=== PATIENT | female | born 1960 | race American Indian/Alaskan Native ===

== ENCOUNTER 2016-10-01 08:24 | Outpatient (CLI) | payer BC ==
[2016-10-01] MEDS ORDERED: NACL ONE (09:40)
--- NOTE | 2016-10-01 10:23 | Cat Scan Report ---
CT SCAN OF THE ABDOMEN WITH CONTRAST: HISTORY: Right upper quadrant abdominal pain. TECHNIQUE: Helical CT in 1.25mm intervals following IV contrast. Sagittal and coronal reconstructions. FINDINGS: The liver is normal in size and is without focal defect. No gallstones or biliary dilatation are noted. The spleen and pancreas demonstrate a normal size and attenuation with no evidence of abnormal mass. The kidneys are normal in size and position with no evidence of hydronephrosis or mass. 2 renal cysts measure up to 2 cm. The adrenal glands are normal. There is no intestinal obstruction or ascites. The appendix is not included. The abdominal aorta is normal. No evidence for ascites, free air, acute inflammation or adenopathy. The lung bases are clear. Normal heart size. No acute bony findings. IMPRESSION: Unremarkable CT abdomen with contrast. No explanation for right upper quadrant pain.
== END 2016-10-01 08:25 | disposition home or self-care (01) ==
LOC: CT 08:24
PROVIDERS: ATTEND Family Medicine
DX: N28.1 Cyst of kidney, acquired (principal)
CPT/HCPCS: 74160; Q9967

== ENCOUNTER 2016-12-30 06:54 | Outpatient (CLI) | payer BC ==
[2016-12-30 09:32] VITALS: BP 128/71
[2016-12-30] MEDS ORDERED: LEXISCAN IV ONE (09:53)
--- NOTE | 2016-12-31 08:32 | Treadmill Report ---
NUCLEAR STUDY REASON FOR STUDY: Chest pain and shortness of breath. READING PHYSICIAN: Fernando Velasquez MD. IMAGING PROTOCOL: The patient received 10 mCi of Technetium 99m Tetrofosmin for resting image and 28 mCi of Technetium 99m Tetrofosmin for stress imaging. The imaging for the whole procedure was completed 30-90 minutes following the initial injection of Technetium 99m tetrofosmin. The SPECT imaging in the 180 degree arc was performed in the right anterior oblique projection. Computerized reconstruction of the images was performed for analysis. IMAGING RESULTS: Normal cavity size from stress to rest. Normal distribution of radionuclide in the anterior, inferior, septal, and apical regions. Gated SPECT, EF greater than 65% with no wall motion abnormalities. The patient infused with Lexiscan with no EKG changes. SUMMARY: 1. Negative Lexiscan EKG. 2. Normal rest and stress myocardial perfusion scan. No significant stress ischemia. No wall motion abnormality. Gated SPECT, EF greater than 65%. [facility]# [id number] MALINI/LINDA
== END 2016-12-30 06:55 | disposition home or self-care (01) ==
LOC: ECHO 06:54
PROVIDERS: ATTEND Internal Medicine
DX: I10 Essential (primary) hypertension (principal); R07.89 Other chest pain; R42 Dizziness and giddiness; R60.0 Localized edema
CPT/HCPCS: 78452; 93017; 93306; 93880; A9502

== ENCOUNTER 2018-08-14 11:53 | Emergency (ER) | payer OTHER, BC ==
[2018-08-14] MEDS ORDERED: IBUPROFEN PO ONE (12:14)
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
[2018-08-16 12:02] VITALS: BP 146/71
== END 2018-08-14 15:05 | disposition home or self-care (01) ==
LOC: ED 11:53
DX: T14.8XXA Other injury of unspecified body region, initial encounter (principal); M25.512 Pain in left shoulder; V49.49XA Driver injured in collision with other motor vehicles in traffic accident, initial encounter; Y93.89 Activity, other specified; Y92.488 Other paved roadways as the place of occurrence of the external cause; Y99.8 Other external cause status; M54.2 Cervicalgia
CPT/HCPCS: 72040

== ENCOUNTER 2019-02-26 08:09 | Outpatient (CLI) | payer BC ==
[2019-02-26 08:26] LABS: Hematocrit 40.4 % (30.3-42.9); Hemoglobin 13.6 gm/dl (10.1-14.3); Mean Corpuscular HGB Conc 34 % (30-34); Mean Corpuscular Volume 94 fl (79-97); Platelet Count 354 K/mm3 (140-440); Red Blood Count 4.31 M/mm3 (3.65-5.03); Red Cell Distribution Width 14.7 % (13.2-15.2)
[2019-02-26 08:45] LABS: Alanine Aminotransferase 30 units/L (7-56); Albumin 4.1 g/dL (3.9-5); BUN/Creatinine Ratio 17; Blood Urea Nitrogen 12 mg/dL (7-17); Calcium 9.5 mg/dL (8.4-10.2); Chol/HDL Ratio 5.27 %; HDL Cholesterol 43 mg/dL (40-59); Hemolysis Index 2; LDL Cholesterol,Direct 188 mg/dL (50-130)
== END 2019-02-26 08:10 | disposition home or self-care (01) ==
LOC: LAB 08:09
PROVIDERS: ATTEND Family Medicine
DX: I10 Essential (primary) hypertension (principal); R73.03 Prediabetes; Z79.899 Other long term (current) drug therapy
CPT/HCPCS: 36415; 80053; 80061; 83036; 84443; 85027

== ENCOUNTER 2019-03-05 09:31 | Outpatient (CLI) | payer BC ==
--- NOTE | 2019-03-08 10:49 | Mammography Report ---
BONE DEXA. History: SCRENING FOR OSTEO Procedure: 2 site bone densitometry performed on a Hologic scanner. Comparison: None Findings: The BMD of the lumbar spine L1-L4 is 0.914 gm/cm2 with a T-score of -1.2 and a Z-score of -0.7 . The bone mineral density (BMD) of the left femoral neck is 0.775 gm/cm2 with a T-score of -0.7 and a Z-score of 0.3. The BMD of the total left hip is 0.974 gm/cm2 with a T-score of +0.3 and a Z-score of 0.3. Impression: WHO Classification: Osteopenia based on lumbar spine measurements. WHO classification: Osteopenia based on left femoral neck measurements. The FRAX 10 year fracture probability for a major osteoporotic fracture is 2.7%. The FRAX 10 year fracture probability for hip fracture is 0.1%. Pharmacological treatment, if not already prescribed should be started. A followup bone density test is recommended in one year to monitor response to therapy. Note:FRAX version 3.01. Fracture probability calculated for an untreated patient. Fracture probabilit y may be lower if the patient has received treatment. RECOMMENDATION: Clinical correlation and routine screening. Definitions: BMD = Bone Mineral Density T score = BMD related to mean peak bone mass of young adult (Laron expressed an standard deviation) Z score = Age-matched BMD expressed in SD World health organization (WHO) diagnostic criteria: Normal: T score greater than -1 SD. Osteopenia: T score between 1- SD and -2.4 SD. Osteoporosis: T score -2.5 SD or below Note: BMD is not the only risk factor for fracture; also consider factors such as the patient's age, risk of falling, previous osteoporotic fracture, family history of osteoporotic fractures, smoking st atus and low body weight. All treatment decisions require clinical judgment and consideration of individual patient factors inc luding patient preferences, comorbidities, previous drug use and risk factors not captured in the FRA X model (e.g. Frailty, falls, vitamin D deficiency, increased bone turnover, interval significant dec line in BMD). A more detailed DEXA Bone Densitometry report is available upon request. Signer Name: Tex Bustillos MD Signed: 03/08/2019 10:45 AM Workstation Name: [id number]
== END 2019-03-05 09:32 | disposition home or self-care (01) ==
LOC: MAMMO 09:31
PROVIDERS: ATTEND Family Medicine
DX: Z13.820 Encounter for screening for osteoporosis (principal); M85.88 Other specified disorders of bone density and structure, other site; I10 Essential (primary) hypertension
CPT/HCPCS: 77080

== ENCOUNTER 2019-06-16 08:00 | Outpatient (CLI) | payer BC ==
[2019-06-16 08:42] LABS: Alanine Aminotransferase 18 units/L (7-56); Albumin 4.4 g/dL (3.9-5); BUN/Creatinine Ratio 16; Blood Urea Nitrogen 11 mg/dL (7-17); Calcium 9.8 mg/dL (8.4-10.2); Chol/HDL Ratio 3.87 %; HDL Cholesterol 41 mg/dL (40-59); Hemolysis Index 1; LDL Cholesterol,Direct 109 mg/dL (50-130)
[2019-06-19 15:31] LABS: Vitamin D, 25-OH, D2 <4 ng/mL
== END 2019-06-16 08:01 | disposition home or self-care (01) ==
LOC: LAB 08:00
PROVIDERS: ATTEND Family Medicine
DX: R73.02 Impaired glucose tolerance (oral) (principal); E55.9 Vitamin D deficiency, unspecified; E78.00 Pure hypercholesterolemia, unspecified; Z79.899 Other long term (current) drug therapy
CPT/HCPCS: 36415; 80053; 80061; 82306; 83036

== ENCOUNTER 2019-07-01 07:53 | Outpatient (CLI) | payer BC ==
--- NOTE | 2019-07-01 08:40 | XRay Report ---
LEFT FOOT 3 VIEWS INDICATION / CLINICAL INFORMATION: M79.672 LEFT FOOT PAIN. COMPARISON: None available. FINDINGS: no fracture, dislocation or soft tissue swelling is seen within the left foot. nonpostinflammatory ca lcaneal enthesophytes are seen at the attachment of the achilles tendon and plantar tendon aponeurosi s. mild degenerative arthrosis is seen within the first mtp joint Signer Name: Nirmal Farrell MD Signed: 07/01/2019 8:35 AM Workstation Name: [id number]
== END 2019-07-01 07:54 | disposition home or self-care (01) ==
LOC: XRAY 07:53
PROVIDERS: ATTEND Family Medicine
DX: M77.32 Calcaneal spur, left foot (principal); M19.072 Primary osteoarthritis, left ankle and foot

== ENCOUNTER 2020-05-24 10:31 | Outpatient (CLI) | payer BC ==
[2020-05-24 11:29] LABS: Blood Urea Nitrogen 11 mg/dL (7-17)
--- NOTE | 2020-05-24 15:53 | Cat Scan Report ---
CT ABDOMEN AND PELVIS WITHOUT CONTRAST INDICATION / CLINICAL INFORMATION: SEVERE LOWER ABDOMINAL PAIN. TECHNIQUE: Axial CT images were obtained through the abdomen and pelvis without IV contrast. All CT scans at [facility] location are performed using CT dose reduction for ALARA by means of automated exposure control. COMPARISON: None available. FINDINGS: LOWER CHEST: No significant abnormality. LIVER: No significant abnormality. GALLBLADDER: No significant abnormality. BILE DUCTS: No significant abnormality. PANCREAS: No significant abnormality. SPLEEN: No significant abnormality. ADRENALS: No significant abnormality. RIGHT KIDNEY and URETER: Multiple small cysts identified within the mid and lower portion of the righ t kidney.. LEFT KIDNEY and URETER: No significant abnormality. STOMACH and SMALL BOWEL: No significant abnormality. COLON: No significant abnormality. Sigmoid diverticulosis but no diverticulitis. APPENDIX: Not well identified.. PERITONEUM: No free fluid. No free air. No fluid collection. LYMPH NODES: No significant adenopathy. AORTA and ARTERIES: No significant abnormality. IVC and VEINS: No significant abnormality. URINARY BLADDER: No significant abnormality. REPRODUCTIVE ORGANS: No significant abnormality. ADDITIONAL FINDINGS: None. SKELETAL SYSTEM: No significant abnormality. IMPRESSION: No acute intra-abdominal abnormality is identified. Minimally complex cyst noted within the right kid yahaira. Sigmoid diverticulosis but no diverticulitis. Signer Name: Mukul Grossman MD Signed: 05/24/2020 3:48 PM Workstation Name: [id number]
== END 2020-05-24 10:32 | disposition home or self-care (01) ==
LOC: CT 10:31
PROVIDERS: ATTEND Internal Medicine
DX: N28.1 Cyst of kidney, acquired (principal); K57.90 Diverticulosis of intestine, part unspecified, without perforation or abscess without bleeding
CPT/HCPCS: 36415; 74150; 74176; 82565; 84520

== ENCOUNTER 2020-06-23 07:47 | Outpatient (CLI) | payer BC ==
[2020-06-23 08:15] LABS: Hematocrit 40.1 % (30.3-42.9); Hemoglobin 13.4 gm/dl (10.1-14.3); Mean Corpuscular HGB Conc 33 % (30-34); Mean Corpuscular Volume 94 fl (79-97); Platelet Count 370 K/mm3 (140-440); Red Blood Count 4.26 M/mm3 (3.65-5.03); Red Cell Distribution Width 14.4 % (13.2-15.2)
[2020-06-23 08:52] LABS: Alanine Aminotransferase 18 units/L (7-56); Albumin 4.2 g/dL (3.9-5); Blood Urea Nitrogen 15 mg/dL (7-17); Calcium 9.6 mg/dL (8.4-10.2); Chol/HDL Ratio 5.15 %; HDL Cholesterol 46 mg/dL (40-59); Hemolysis Index 3; LDL Cholesterol,Direct 199 mg/dL (50-130)
[2020-06-23 08:58] LABS: BUN/Creatinine Ratio 21
[2020-06-29 12:35] LABS: ANA Screen, IFA Negative (Negative)
== END 2020-06-23 07:48 | disposition home or self-care (01) ==
LOC: LAB 07:47
PROVIDERS: ATTEND Internal Medicine Pulmonary Disease
DX: E11.9 Type 2 diabetes mellitus without complications (principal); I10 Essential (primary) hypertension; M06.4 Inflammatory polyarthropathy
CPT/HCPCS: 36415; 80053; 80061; 83036; 84436; 84443; 84480; 85027; 86038; 86431

== ENCOUNTER 2020-09-21 06:38 | Outpatient (CLI) | payer BC ==
--- NOTE | 2020-09-21 09:41 | Magnetic Resonance Report ---
MRI RIGHT KNEE WITHOUT CONTRAST INDICATION / CLINICAL INFORMATION: MAIN. 60-year-old female with pain in the right hip in the right knee. TECHNIQUE: Multiplanar, multisequence MR images were obtained. No contrast used. COMPARISON: None available. FINDINGS: LIGAMENTS: ACL, PCL, MCL, and LCL complex demonstrate no significant abnormality. MENISCI: Degenerative appearance of the medial meniscus with near complete radial tear at the posteri or horn and peripheral extrusion of the body segment. Lateral meniscus is intact. No displaced fragme nt or a meniscal cyst. EXTENSOR MECHANISM/TENDONS: Mild insertional quadriceps tendinosis and mild proximal patellar tendino sis. ARTICULAR CARTILAGE: Severe medial tibiofemoral chondrosis with essentially complete loss of cartilag e. Moderate patellofemoral and lateral tibiofemoral chondrosis. JOINT SPACE: Small effusion with mild synovitis. No significant popliteal cyst. No intra-articular cindi dies. Small amount of fluid at the proximal tibiofibular articulation. BONES: Minimal subchondral edema/cystic change at the peripheral tibiofemoral articulation. No fractu re. No osseous lesion. Small proximal and distal patellar enthesophytes. SOFT TISSUES: No significant abnormality. ADDITIONAL FINDINGS: None. IMPRESSION: 1. Tricompartmental osteoarthrosis, greatest at the medial compartment. There is near complete medial meniscus radial tear at the posterior horn and peripheral extrusion of the body segment. 2. Mild patellar enthesopathy at the distal quadriceps and proximal patellar tendon attachments. Report dictated by: Javier Conley MD Report dictated on: 09/21/2020 8:28 AM I have reviewed the images, agree with this report, and edited this report as needed. Signer Name: Sheng Diez MD Signed: 09/21/2020 9:36 AM Workstation Name: [id number]
--- NOTE | 2020-09-21 09:44 | Magnetic Resonance Report ---
MRI RIGHT HIP WITHOUT CONTRAST INDICATION / CLINICAL INFORMATION: PAIN IN RIGHT HIP AND KNEE. 60-year-old female TECHNIQUE: Multiplanar, multisequence MR images were obtained. No contrast used. COMPARISON: CT abdomen and pelvis 05/24/2020 FINDINGS: HIP JOINT: Diffuse labral degeneration with some mild chondral-labral separation along the superior l abrum. Small effusion with mild synovitis. Moderate chondrosis. MUSCULOTENDINOUS: Mild reactive edema subjacent to the IT band at the level of the greater trochanter . SOFT TISSUES: No significant abnormality. BONES: Mild edema at the lateral femoral head and adjacent acetabular roof. No fracture. No osseous lesion. ADDITIONAL FINDINGS: Incidentally visualized soft tissues within the pelvis demonstrate no significan t abnormality. Sacroiliac joints demonstrate no significant abnormality. Lower lumbar spine demonstra casey no significant abnormality. Partially visualized 1.4 cm right anterior/proximal thigh lymph node, possibly reactive. IMPRESSION: 1. Moderate right hip degenerative change with associated diffuse labral degeneration with mild chond ral-labral separation along the superior labrum. 2. Small effusion with mild synovitis. 3. Mild edema subjacent to the proximal IT band at the level of the greater trochanter. Report dictated by: Javier Conley MD Report dictated on: 09/21/2020 8:20 AM I have reviewed the images, agree with this report, and edited this report as needed. Signer Name: Sheng Diez MD Signed: 09/21/2020 9:39 AM Workstation Name: [id number]
== END 2020-09-21 06:39 | disposition home or self-care (01) ==
LOC: MRI 06:38
PROVIDERS: ATTEND Orthopaedic Surgery
DX: S83.241A Other tear of medial meniscus, current injury, right knee, initial encounter (principal); M25.451 Effusion, right hip; M65.851 Other synovitis and tenosynovitis, right thigh; M16.11 Unilateral primary osteoarthritis, right hip; M79.89 Other specified soft tissue disorders; M76.891 Other specified enthesopathies of right lower limb, excluding foot; M17.11 Unilateral primary osteoarthritis, right knee; M25.461 Effusion, right knee; M65.861 Other synovitis and tenosynovitis, right lower leg; X58.XXXA Exposure to other specified factors, initial encounter; Y93.89 Activity, other specified; Y92.89 Other specified places as the place of occurrence of the external cause; Y99.8 Other external cause status
CPT/HCPCS: 73721

== ENCOUNTER 2020-11-15 10:09 | Outpatient (CLI) | payer BC ==
[2020-11-15] MEDS ORDERED: LIDOCAINE 2% INFILTRATI NR (12:00)
[2020-11-15] MEDS ORDERED: METHYLPREDNISOLONE ACETATE INFILTRATI NR (12:00)
--- NOTE | 2020-11-15 13:49 | Fluoroscopy Report ---
FLUOROSCOPY ARTHROCENTESIS LARGE JOINT RIGHT HISTORY: Right hip pain, right hip labral tear DESCRIPTION OF PROCEDURE: Informed consent was obtained. A timeout was performed. Sterile technique w as utilized. The right anterior hip region was prepped and draped in sterile fashion. Skin anesthesia was accomplished with 1% lidocaine. Using fluoroscopy guidance, a 22-gauge spinal needle was advance d into the right hip joint. Intra-articular placement was confirmed with a small amount of contrast i njection. A solution containing 2 cc of 2% lidocaine and 40 mg of Depo-Medrol was injected without in cident. The patient tolerated the procedure without difficulty. No complications. The patient reports right hip pain graded as 3 out of 10 prior to the procedure and 1 out of 10 after the procedure. IMPRESSION: Successful fluoroscopy guided right hip injection as described. Fluoroscopy time: 1.3 minutes Fluoroscopic images: 3 Signer Name: Werner Jerome Jr, MD Signed: 11/15/2020 1:44 PM Workstation Name: [id number]
== END 2020-11-15 10:10 | disposition home or self-care (01) ==
LOC: FLUORO 10:09
PROVIDERS: ATTEND Orthopaedic Surgery
DX: S73.191A Other sprain of right hip, initial encounter (principal); M16.11 Unilateral primary osteoarthritis, right hip; I10 Essential (primary) hypertension; F32.9 Major depressive disorder, single episode, unspecified; Z88.8 Allergy status to other drugs, medicaments and biological substances; Z79.899 Other long term (current) drug therapy; X58.XXXA Exposure to other specified factors, initial encounter; Y93.89 Activity, other specified; Y92.89 Other specified places as the place of occurrence of the external cause; Y99.8 Other external cause status
CPT/HCPCS: 20610; 77002; J1030; Q9965

== ENCOUNTER 2020-12-08 06:52 | Outpatient (CLI) | payer BC ==
[2020-12-08 08:23] LABS: Basophils # (Auto) 0.1 K/mm3 (0.0-0.1); Basophils % (Auto) 1.7 % (0.0-1.8); Eosinophils # (Auto) 0.1 K/mm3 (0.0-0.4); Eosinophils % (Auto) 1.6 % (0.0-4.3); Hemoglobin 13.7 gm/dl (10.1-14.3); Lymphocytes % (Auto) 35.8 % (13.4-35.0); Mean Corpuscular HGB Conc 34 % (30-34); Mean Corpuscular Volume 93 fl (79-97); Monocytes # (Auto) 0.6 K/mm3 (0.0-0.8); Monocytes % (Auto) 7.6 % (0.0-7.3); Red Cell Distribution Width 14.6 % (13.2-15.2)
[2020-12-08 08:34] LABS: Platelet Count 324 K/mm3 (140-440)
[2020-12-08 08:46] LABS: INR 0.98 (0.87-1.13)
[2020-12-08 08:47] LABS: Partial Thromboplastin Time 29.5 Sec. (24.2-36.6)
[2020-12-08 09:01] LABS: Alanine Aminotransferase 23 units/L (7-56); Albumin 4.4 g/dL (3.9-5); BUN/Creatinine Ratio 26; Blood Urea Nitrogen 21 mg/dL (7-17); Hemolysis Index 248
[2020-12-08 10:11] LABS: Bacteria,Urine 2+ /HPF (Negative); Bilirubin,Urine NEG (Negative); Blood,Urine SM (Negative); Color,Urine Yellow (Yellow); Mucus,Urine FEW /HPF; Protein,Urine <15 mg/dL mg/dL (Negative); Urobilinogen,Urine < 2.0 mg/dL (<2.0)
--- NOTE | 2020-12-08 13:39 | Electrocardiograph Report ---
[facility] Test Date: 2020-12-08 Test Time: 08:53:14 Pat Name: AL PURCELL Department: Room: Gender: F Marble Mason: RAIMUNDO : 1960 Requested By: CHRIS MOODY Order Number: [id number] Reading MD: Nitin Flowers Measurements Intervals What Cheer Rate: 67 P: 53 CT: 187 QRS: 53 QRSD: 84 T: 22 QT: 397 QTc: 420 Interpretive Statements Sinus rhythm No previous ECG available for comparison Electronically Signed On 12-08-2020 13:39:20 EDT by Nitin Flowers
== END 2020-12-08 06:53 | disposition home or self-care (01) ==
LOC: LAB 06:52
PROVIDERS: ATTEND Internal Medicine
DX: Z00.00 Encounter for general adult medical examination without abnormal findings (principal)
CPT/HCPCS: 36415; 80053; 81001; 85025; 85610; 85730; 93005

== ENCOUNTER 2020-12-20 08:01 | Outpatient (CLI) | payer BC | END 2020-12-20 08:02 | disposition home or self-care (01) | LOC: MAMMO 08:01 | PROVIDERS: ATTEND Internal Medicine | DX: Z12.31 Encounter for screening mammogram for malignant neoplasm of breast (principal); N64.89 Other specified disorders of breast | CPT/HCPCS: 77067 ==

== ENCOUNTER 2020-12-28 06:00 | Inpatient (IN) | payer BC ==
[2020-12-22 09:29] LABS: Bilirubin,Urine NEG (Negative); Blood,Urine NEG (Negative); Color,Urine Straw (Yellow); Mucus,Urine FEW /HPF; Protein,Urine <15 mg/dL mg/dL (Negative); Urobilinogen,Urine < 2.0 mg/dL (<2.0); WBC,Urine < 1.0 /HPF (0.0-6.0)
[2020-12-22 09:31] LABS: RBC,Urine < 1.0 /HPF (0.0-6.0)
--- NOTE | 2020-12-22 12:33 | Anesthesia Consultation ---
Anesthesia Consult and Med Hx Date of service: 12/28/20 - Airway Anesthetic Teeth Evaluation: Partials (upper and lower) ROM Head & Neck: Adequate Mental/Hyoid Distance: Adequate Mallampati Class: Class II Intubation Access Assessment: Probably Good - Pulmonary Exam CTA: Yes - Cardiac Exam Cardiac Exam: RRR - Pre-Operative Health Status ASA Pre-Surgery Classification: ASA2 Proposed Anesthetic Plan: General (discussed risks/benefits of GA vs neuraxial; patient requests GA) Nerve Block: Adductor canal - Pulmonary Hx Smoking: No Hx Respiratory Symptoms: No Hx Sleep Apnea: No (ELISABETH PRE SCREEN LOW RISK) - Cardiovascular System Hx Hypertension: Yes Hx Heart Attack/AMI: No - Central Nervous System CVA: No Hx Back Pain: Yes - Endocrine Hx Renal Disease: No (12/08/20 BUN/analytical research program manager: 21/0.8) Hx Liver Disease: No Hx Non-Insulin Dependent Diabetes: Yes Hx Thyroid Disease: No - Hematic Hx Anemia: No (12/08/20 H/H: 13/40 plt 324) - Other Systems Hx Obesity: Yes (BMI 36) - Additional Comments Anesthesia Medical History Comments: No hx anesthetic complications. Patient has Rx for preop celebrex and tylenol from surgeon. Preop PCP eval on chart.
[~2020-12-28 06:00] MED LIST: LACTATED RINGERS 1,000 ML IV SCH; MAGNESIUM OXIDE 400 MG TAB PO SCH; MIDAZOLAM 2 MG/2 ML INJ IV NR; fentaNYL 100 MCG/2 ML INJ IV PRN
[2020-12-28] MEDS ORDERED: BACTERIOSTATIC SODIUM CHLORIDE 0.9% 30 ML VIAL INFILTRATI ONE (06:33)
[2020-12-28] MEDS ORDERED: ceFAZolin/Water 2 GM/20 ML 2 GM/20 ML SYRINGE IV ONE (06:34)
[2020-12-28] MEDS ORDERED: dexAMETHasone 20 MG/5 ML VIAL ONE (07:01)
[2020-12-28] MEDS ORDERED: HYDROmorphone 1 MG/1 ML INJ ONE (07:01)
[2020-12-28] MEDS ORDERED: fentaNYL 100 MCG/2 ML INJ ONE ×2 (07:01→08:43)
[2020-12-28] MEDS ORDERED: propofoL 200 MG/20 ML VIAL IV ONE (07:01)
[2020-12-28] MEDS ORDERED: ONDANSETRON 4 MG/2 ML INJ ONE (07:01)
[2020-12-28] MEDS ORDERED: ROCURONIUM 50 MG/5 ML INJ IV ONE (07:01)
[2020-12-28] MEDS ORDERED: KETOROLAC 30 MG/1 ML INJ ONE (07:05)
[2020-12-28] MEDS ORDERED: SODIUM CHLORIDE 0.9% 100 ML ONE (07:06)
[2020-12-28] MEDS ORDERED: BUPIVACAINE/PF (0.25%) 2.5 MG/ML 30 ML VIAL INFILTRATI ONE ×3 (07:06→11:01)
[2020-12-28] MEDS ORDERED: SODIUM CHLORIDE 0.9% 250ML 250 ML ONE (07:06)
[2020-12-28] MEDS ORDERED: TRANEXAMIC ACID 1,000 MG/10 ML ONE ×2 (07:06→09:08)
[2020-12-28] MEDS ORDERED: POLYMYXIN B SULFATE 500,000 UNIT VIAL IV ONE ×2 (07:06→09:12)
[2020-12-28] MEDS ORDERED: OXYCHLOROSENE 2 GM POWDER IR ONE ×2 (07:07→10:45)
[2020-12-28] MEDS ORDERED: ONDANSETRON 4 MG/2 ML INJ IV PRN ×2 (07:24→12:30)
[2020-12-28] MEDS ORDERED: HYDROmorphone 1 MG/1 ML INJ IV PRN (07:24)
--- NOTE | 2020-12-28 07:25 | Anesthesia Day of Surgery ---
Anesthesia Day of Surgery - Day of Surgery Patient Examined: Yes Patient H&P Reviewed: Yes Patient is NPO: Yes
[2020-12-28] MEDS ORDERED: dexAMETHasone 4 MG/ML VIAL ONE (07:42)
[2020-12-28] MEDS ORDERED: VANCOMYCIN/NS 1 GM/250 ML 1 GM/250 ML BAG IV NR (08:00)
[2020-12-28] MEDS ORDERED: ePHEDrine SULFATE 50 MG/1 ML INJ ONE (08:27)
[2020-12-28] MEDS ORDERED: VANCOMYCIN 1,500 MG in SODIUM CHLORIDE 0.9% 500 ML 500 ML IV ONE (09:00)
[2020-12-28] MEDS ORDERED: SODIUM CHLORIDE 0.9% IRRIG SOLN 2000 ML IR ONE (09:12)
[2020-12-28] MEDS ORDERED: SODIUM CHLORIDE 0.9% IRR 1,500 ML BOTTLE IR ONE (10:45)
[2020-12-28] MEDS ORDERED: SUGAMMADEX SODIUM 200 MG/2 ML VIAL IV ONE (10:49)
[2020-12-28] MEDS ORDERED: KETOROLAC 30 MG/1 ML INJ IV ONE (11:01)
[2020-12-28] MEDS ORDERED: SODIUM CHLORIDE 0.9% 250 ML IVPB IV ONE (11:01)
[2020-12-28] MEDS: HYDROmorphone 1 MG/1 ML INJ IV PRN ×4 (11:52→12:22)
[2020-12-28] MEDS ORDERED: CELECOXIB 200 MG CAP PO SCH (12:00)
[2020-12-28] MEDS ORDERED: MAGNESIUM HYDROXIDE (MOM) ORAL LIQD UDC PO PRN (12:30)
[2020-12-28] MEDS ORDERED: MIDAZOLAM 2 MG/2 ML INJ IV SCH (12:30)
[2020-12-28] MEDS ORDERED: PROMETHAZINE 25 MG RECT SUPP PR PRN (12:30)
--- NOTE | 2020-12-28 12:58 | XRay Report ---
Right knee 2 views INDICATION: Postop FINDINGS: Right total knee arthroplasty appears satisfactory position. There is diffuse soft tissue g as and edema likely secondary to recent postoperative change. Alignment appears normal. IMPRESSION: Right knee arthroplasty with diffuse soft tissue swelling/gas which may be postoperative. Clinical co rrelation with history.. Signer Name: Armond Hearn MD Signed: 12/28/2020 12:54 PM Workstation Name: [facility] [id number]
[2020-12-28] MEDS ORDERED: ceFAZolin/Water 2 GM/20 ML 2 GM/20 ML SYRINGE IV NR (13:00)
--- NOTE | 2020-12-28 13:25 | Operative Report ---
DATE OF SURGERY: 12/28/2020 PREOPERATIVE DIAGNOSIS: Severe advanced osteoarthritis, right knee joint. POSTOPERATIVE DIAGNOSES: 1. Severe advanced osteoarthritis, right knee joint. 2. Stiff right knee joint. COMPLICATIONS: None. PROCEDURE PERFORMED: 1. Right total knee replacement. 2. Partial synovectomy, right knee joint. SURGEON: Eddie Stewart MD ALMOND PASTE MIXER: Misael Ye, operative tech. COMPLICATIONS: None. BLOOD LOSS: Less than 50 mL IMPLANTS USED: Delacruz and Nephew Legion Oxinium femoral component, size 5 right narrow; tibial tray size 4 right side polyethylene liner, 9 mm posterior stabilized. Oval patella with a 29 mm, 8 mm thick. Incision: Midline incision. Arthrotomy: Medial parapatellar arthrotomy. Epicondylar angle: 3 degree. Prepatellar thickness: 21 mm. Post-patellar thickness: 22 mm. Cement: Palacos R plus G. Medial release: Yes. Lateral release: No. Recut: No. Vessel save: Not applicable. PROCEDURE IN DETAIL: The patient was taken to the operating room. After smooth general anesthesia, all the bony prominences were carefully padded, placed supine on the operating table. Thigh tourniquet was placed on the right knee, right lower extremity was prepped and draped in sterile fashion. Leg elevated. Esmarch used, tourniquet inflated to 300 mmHg. The patient had 2 grams of Ancef half an hour before the procedure. A longitudinal incision was made over the anterior aspect of the knee, exposing the extensor mechanism. Arthrotomy performed. Patellar displaced laterally. Gross findings revealed severe advanced degenerative arthritis. Subperiosteal dissection was continued around the proximal medial tibia. Necessary soft tissue release was performed to correct the fixed angular deformity. Drill was used to open up the femoral canal. Sterile intramedullary femoral cutting guide was placed. Distal femur resected at 5-degree valgus angle. Epicondylar axis, AP axis determined, femoral sizing guide was placed. Appropriate component selected. Anterior and posterior condyles were then resected with the oscillating saw. Extramedullary tibial cutting guide was placed. Proximal tibia was resected perpendicular to the long axis of the tibia. Minimal bone resection was performed. Lamina lard tub washer was placed between the femur and tibial. Arthritic ACL, PCL ligament removed. Medial and lateral meniscectomy was performed. Gap balancing was then performed by doing appropriate release. Alignment checked, knee to be well aligned as 9 spacer had equal gaps in flexion, extension and medial and lateral. Tibia was then prepared by tibial reaming amanda system by placing the tibial tray in proper position, proper external rotation. The femur was then prepared for the box by using a Delacruz and Nephew trial femur. Patella prepared by patellar reaming system, prepared for three post-patella, prepatellar thick. Oval patella seemed to be a great match. Osteophytes were removed. Trialing was performed with 9 poly with great stability with full extension, full flexion, stable throughout range of motion. Patellar tracking was central. Trial components were removed, thoroughly washed the knee area with antibiotic soaked in normal saline followed by normal saline. Tibia was cemented first set in proper position, proper external rotation, impacted in place. Excess cement was removed. Femur was then cemented in proper position, proper external rotation, impacted in place. Excess cement was removed. Cementing of the patella was performed. Compression placed. Excess cement was removed. Trial liner was then placed. Once the cement was hard and drill tibial articulating surface was then implanted. The knee again move through range of motion and found to be extremely stable. Full extension, full flexion. Patella was tracking centrally. Thorough washing was performed. Pain cocktail was injected into the periarticular tissue around the knee. Arthrotomy was closed with a combination of #2 Quill suture and 0 Vicryl sutures and a couple of Ethibond stitch. The subcutaneous tissue was closed with 2-0 Vicryl interrupted sutures. Skin was closed with Monocryl. Dermabond applied. Aquacel dressing done. The patient tolerated the procedure well and shifted to recovery room in stable condition. Sponge and needle count was correct. TID: [id number] RECEIPT: [id number] DAMEON/MICHEL
[2020-12-28] MEDS: GABAPENTIN 300 MG CAP PO SCH ×2 (14:46→23:00)
[2020-12-28] MEDS: KETOROLAC 30 MG/1 ML INJ IV PRN (14:52)
[2020-12-28] MEDS: ceFAZolin/NS 1 GM/50 ML 1 GM/50 ML BAG IV SCH ×2 (17:05→23:30)
[2020-12-28] MEDS: metFORMIN 500 MG TAB PO SCH (17:05)
--- NOTE | 2020-12-28 17:14 | Post Anesthesia Evaluation ---
- Post Anesthesia Evaluation Patient Participated: Yes Airway Patent: Yes Stable Respiratory Function: Yes Nausea/Vomiting: No Temp > 96.8F: Yes Pain Manageable: Yes Adequeate Hydration: Yes Anesthesia Complications: No Block Receding Appropriately: Yes Patient on Ventilator: No
--- NOTE | 2020-12-28 19:27 | Consultation ---
History of Present Illness - Reason for Consult Consult date: 12/28/20 Medical management Requesting physician: GLENN MACHADO - History of Present Illness S/p RTKA Postop doing well Past History Past Medical History: diabetes, hypertension, other (Vitamin D deficiency) Past Surgical History: total knee replacement Social history: lives with family, full code Family history: hypertension Medications and Allergies Allergies Allergy/AdvReac Type Severity Reaction Status Date / Time lisinopril Allergy DIFFICULTY Verified 12/21/20 11:58 SWALLOWING Home Medications Medication Instructions Recorded Confirmed Last Taken Type Cholecalciferol Vit D3 [Vitamin D3 1,000 unit PO QDAY 12/21/20 12/21/20 12/27/20 History 1,000 UNIT TAB] Potassium Chloride [Klor-Con 8] 8 meq PO QDAY 12/21/20 12/21/20 12/27/20 History hydroCHLOROthiazide [Hctz] 12.5 mg PO BID 12/21/20 12/21/20 12/27/20 History metFORMIN [Glucophage] 500 mg PO BID 12/21/20 12/21/20 12/27/20 History Celecoxib [celeBREX] 200 mg PO ONCE 12/28/20 12/28/20 12/28/20 05:30 History Active Meds: Active Medications Hydrocodone Bitart/Acetaminophen (Hydrocodone/Acetaminophen 10-325mg Tab) 1 each PO Q4H PRN PRN Reason: Pain, Moderate (4-6) Aspirin (Aspirin Ec 81 Mg Tab) 81 mg PO BID [facility] Cholecalciferol (Cholecalciferol (Vit D3) 1000 Unit (25 Mcg) Tab) 1,000 unit PO QDAY [facility] Docusate Sodium (Docusate Sodium 100 Mg Cap) 100 mg PO BID [facility] Fentanyl (Fentanyl 100 Mcg/2 Ml Inj) 100 mcg IV ONCE PRN PRN Reason: sedation for nerve block Stop: 12/28/20 23:59 Gabapentin (Gabapentin 300 Mg Cap) 300 mg PO TID [facility] Last Admin: 12/28/20 14:46 Dose: 300 mg Documented by: Hydrochlorothiazide (Hydrochlorothiazide 12.5 Mg Cap) 12.5 mg PO BID [facility] Hydromorphone HCl (Hydromorphone 1 Mg/1 Ml Inj) 0.25 mg IV Q10MIN PRN PRN Reason: Pain, Moderate (4-6) Stop: 12/28/20 20:00 Cefazolin Sodium (Ancef/Sterile Water 2 Gm/20 Ml) 2 gm in 20 mls @ 80 mls/hr IV PREOP NR; Protocol Stop: 12/28/20 23:59 Lactated Ringer's (Lactated Ringers) 1,000 mls @ 100 mls/hr IV DIRECT DEMETRI Stop: 12/28/20 23:59 Last Admin: 12/28/20 06:45 Dose: 100 mls/hr Documented by: Cefazolin Sodium (Ancef/Ns 1 Gm/50 Ml) 1 gm in 50 mls @ 100 mls/hr IV Q8H DEMETRI Stop: 12/29/20 00:59 Last Admin: 12/28/20 17:05 Dose: 100 mls/hr Documented by: Ketorolac Tromethamine (Ketorolac 30 Mg/1 Ml Inj) 15 mg IV Q6H PRN PRN Reason: Pain, Mild (1-3) Last Admin: 12/28/20 14:52 Dose: 15 mg Documented by: Magnesium Hydroxide (Magnesium Hydroxide (Mom) Oral Liqd Udc) 30 ml PO Q4H PRN PRN Reason: Constipation Magnesium Oxide (Magnesium Oxide 400 Mg Tab) 400 mg PO PREOP DEMETRI Stop: 12/28/20 23:59 Last Admin: 12/28/20 07:09 Dose: 400 mg Documented by: Metformin HCl (Metformin 500 Mg Tab) 500 mg PO BIDDIAB DEMETRI Last Admin: 12/28/20 17:05 Dose: 500 mg Documented by: Midazolam HCl (Midazolam 2 Mg/2 Ml Inj) 2 mg IV PREOP NR Stop: 12/28/20 23:59 Morphine Sulfate (Morphine 4 Mg/1 Ml Inj) 4 mg IV Q4H PRN PRN Reason: Pain , Severe (7-10) Ondansetron HCl (Ondansetron 4 Mg/2 Ml Inj) 4 mg IV ONCE PRN PRN Reason: Nausea And Vomiting Stop: 12/28/20 20:00 Ondansetron HCl (Ondansetron 4 Mg/2 Ml Inj) 4 mg IV Q8H PRN PRN Reason: Nausea And Vomiting Last Admin: 12/28/20 17:23 Dose: 4 mg Documented by: Potassium Chloride (Potassium Chloride Er 8 Meq Tab) 8 meq PO QDAY DEMETRI Promethazine HCl (Promethazine 25 Mg Rect Supp) 25 mg NM Q6H PRN PRN Reason: Nausea And Vomiting Sodium Chloride (Sodium Chloride 0.9% 10 Ml Flush Syringe) 10 ml IV PRN PRN PRN Reason: flush Exam - Constitutional Vitals: Temp Pulse Resp BP Pulse Ox 97.3 F L 69 18 111/72 98 12/28/20 13:32 12/28/20 13:32 12/28/20 13:39 12/28/20 13:32 12/28/20 13:32 General appearance: Present: no acute distress, well-nourished - EENT Eyes: Present: PERRL ENT: hearing intact, clear oral mucosa - Neck Neck: Present: supple, normal ROM - Respiratory Respiratory effort: normal Respiratory: bilateral: CTA - Cardiovascular Heart Sounds: Present: S1 & S2. Absent: rub, click - Extremities Extremities: pulses symmetrical, No edema Peripheral Pulses: within normal limits - Abdominal General gastrointestinal: Present: soft, non-tender, non-distended, normal bowel sounds Female genitourinary: Present: normal - Integumentary Integumentary: Present: clear, warm, dry - Musculoskeletal Musculoskeletal: gait normal, strength equal bilaterally - Psychiatric Psychiatric: appropriate mood/affect, intact judgment & insight - Neurologic Neurologic: CNII-XII intact, moves all extremities Results - Labs CBC & Chem 7: 12/29/20 14:05 12/29/20 14:05 Labs: Abnormal lab results 12/28/20 Range/Units 12:33 POC Glucose 136 H (70-105) mg/dL Assessment and Plan - Patient Problems (1) Hx of total knee arthroplasty Current Visit: Yes Status: Acute Qualifiers: Laterality: right Qualified Code(s): Z96.651 - Presence of right artificial knee joint Plan to address problem: Postop doing well Undergoing PT/OT (2) Hypertension Current Visit: Yes Status: Acute Plan to address problem: Continue antihypertensives (3) Vitamin D deficiency Current Visit: Yes Status: Chronic Plan to address problem: Continue vitamin D supplements (4) T2DM (type 2 diabetes mellitus) Current Visit: Yes Status: Chronic Qualifiers: 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
[2020-12-28] MEDS: MORPHINE 4 MG/1 ML INJ IV PRN (20:05)
[2020-12-28] MEDS: DOCUSATE SODIUM 100 MG CAP PO SCH (22:49)
[2020-12-28] MEDS: ASPIRIN EC 81 MG TAB PO SCH (22:49)
[2020-12-28] MEDS: hydroCHLOROthiazide 12.5 MG CAP PO SCH (22:50)
[2020-12-29] MEDS: KETOROLAC 30 MG/1 ML INJ IV PRN (03:37)
--- NOTE | 2020-12-29 07:28 | Progress Note ---
Assessment and Plan Assessment and plan: --COVID-19 test - 12/22/2020 --Severe advanced osteoarthritis right knee joint ; s/p total knee replacement Current Visit: Yes Status: Acute Ortho evaluated patient underwent surgical procedure 12/28/2020/p right total knee replacement, partial synovectomy of the right knee joint Continue postop care PT OT pain management --Hypertension/moderate control Current Visit: Yes Status: Acute Continue current antihypertensives. As needed hydralazine --h/o Vitamin D deficiency Current Visit: Yes Status: Chronic Continue vitamin D supplements --T2DM (type 2 diabetes mellitus) Current Visit: Yes Status: Chronic Accu-Cheks , sliding scale coverage, ADA diet Oral hypoglycemics Metformin, check A1c --Obesity; BMI 36.5 Current Visit: Yes Status: Chronic. Patient needs diet modification exercise as tolerated and weight reduction when he is medically stable --DVT prophylaxis Current Visit: Yes Status: Acute Eliquis 2.5 twice daily for 5 weeks Start Eliquis when cleared by orthopedic . We will closely monitor the patient and adjust management as needed Plan of care reviewed with the patient and her nurse Follow Ortho recommendations Follow PT OT evaluation treatment and recommendations Possible discharge tomorrow if stable Plan of care reviewed with the patient and her nurse History Interval history: I have seen and examined the patient at the bedside Patient's chart and medications reviewed Patient has mild pain Anxious to go home Tolerating PT Vital signs reviewed Hospitalist Physical - Constitutional Vitals: Temp Pulse Resp BP Pulse Ox 98.1 F 72 18 103/50 97 12/29/20 05:44 12/29/20 05:44 12/29/20 05:44 12/29/20 05:44 12/29/20 05:44 General appearance: Present: no acute distress, well-nourished, obese - EENT Eyes: Present: PERRL, EOM intact - Neck Neck: Present: supple, normal ROM - Respiratory Respiratory effort: normal Respiratory: bilateral: diminished, negative: rales, rhonchi, wheezing - Cardiovascular Rhythm: regular Heart Sounds: Present: S1 & S2 - Extremities Extremities: no ischemia, No edema - Abdominal General gastrointestinal: soft, non-tender, non-distended, normal bowel sounds - Integumentary Integumentary: Present: clear, warm - Psychiatric Psychiatric: appropriate mood/affect, cooperative - Neurologic Neurologic: CNII-XII intact, moves all extremities Results - Labs CBC & Chem 7: 12/29/20 14:05 12/29/20 14:05 Labs: Laboratory Last Values POC Glucose 152 mg/dL (70-105) H 12/28/20 22:20 Urine Color Straw (Yellow) 12/22/20 09:00 Urine Turbidity Clear (Clear) 12/22/20 09:00 Urine pH 5.0 (5.0-7.0) 12/22/20 09:00 Ur Specific [place] 1.011 (1.003-1.030) 12/22/20 09:00 Urine Protein <15 mg/dl mg/dL (Negative) 12/22/20 09:00 Urine Glucose (UA) Neg mg/dL (Negative) 12/22/20 09:00 Urine Ketones Neg mg/dL (Negative) 12/22/20 09:00 Urine Blood Neg (Negative) 12/22/20 09:00 Urine Nitrite Neg (Negative) 12/22/20 09:00 Urine Bilirubin Neg (Negative) 12/22/20 09:00 Urine Urobilinogen < 2.0 mg/dL (<2.0) 12/22/20 09:00 Ur Leukocyte Esterase Neg (Negative) 12/22/20 09:00 Urine WBC (Auto) < 1.0 /HPF (0.0-6.0) 12/22/20 09:00 Urine RBC (Auto) < 1.0 /HPF (0.0-6.0) 12/22/20 09:00 U Epithel Cells (Auto) < 1.0 /HPF (0-13.0) 12/22/20 09:00 Urine Mucus Few /HPF 12/22/20 09:00 Nasal Screen MRSA (PCR) Negative (Negative) 12/22/20 08:55 Nasal Screen MRSA (PCR) Negative (Negative) 12/22/20 08:55 Coronavirus (PCR) Negative (Negative) 12/22/20 08:55 Blood Type O POSITIVE 12/28/20 06:45 Antibody Screen Negative 12/28/20 06:45 Jenkins/IV: Voiding Method Toilet Active Medications - Current Medications Current Medications: Generic Name Dose Route Start Last Admin Trade Name Freq PRN Reason Stop Dose Admin Hydrocodone Bitart/Acetaminophen 1 each 12/28/20 12:30 Hydrocodone/Acetaminophen 10-325mg Tab PO Q4H PRN Pain, Moderate (4-6) Aspirin 81 mg 12/28/20 22:00 12/28/20 22:49 Aspirin Ec 81 Mg Tab PO 81 mg BID DEMETRI Administration Cholecalciferol 1,000 unit 12/29/20 10:00 Cholecalciferol (Vit D3) 1000 Unit (25 Mcg) Tab PO QDAY DEMETRI Docusate Sodium 100 mg 12/28/20 22:00 12/28/20 22:49 Docusate Sodium 100 Mg Cap PO 100 mg BID DEMETRI Administration Gabapentin 300 mg 12/28/20 14:00 12/28/20 23:00 Gabapentin 300 Mg Cap PO 300 mg TID DEMETRI Administration Hydrochlorothiazide 12.5 mg 12/28/20 22:00 12/28/20 22:50 Hydrochlorothiazide 12.5 Mg Cap PO 12.5 mg BID DEMETRI Administration Magnesium Hydroxide 30 ml 12/28/20 12:30 Magnesium Hydroxide (Mom) Oral Liqd Udc PO Q4H PRN Constipation Metformin HCl 500 mg 12/28/20 17:00 12/28/20 17:05 Metformin 500 Mg Tab PO 500 mg BIDDIAB DEMETRI Administration Morphine Sulfate 4 mg 12/28/20 12:30 12/28/20 20:05 Morphine 4 Mg/1 Ml Inj IV 4 mg Q4H PRN Administration Pain , Severe (7-10) Ondansetron HCl 4 mg 12/28/20 12:30 12/28/20 17:23 Ondansetron 4 Mg/2 Ml Inj IV 4 mg Q8H PRN Administration Nausea And Vomiting Potassium Chloride 8 meq 12/29/20 10:00 Potassium Chloride Er 8 Meq Tab PO QDAY [facility] Promethazine HCl 25 mg 12/28/20 12:30 Promethazine 25 Mg Rect Supp NM Q6H PRN Nausea And Vomiting Sodium Chloride 10 ml 12/28/20 13:00 Sodium Chloride 0.9% 10 Ml Flush Syringe IV PRN PRN flush
[2020-12-29] MEDS: GABAPENTIN 300 MG CAP PO SCH ×3 (09:03→22:14)
[2020-12-29] MEDS: ASPIRIN EC 81 MG TAB PO SCH ×2 (09:03→22:14)
[2020-12-29] MEDS: DOCUSATE SODIUM 100 MG CAP PO SCH ×2 (09:03→22:14)
[2020-12-29] MEDS: CHOLECALCIFEROL (VIT D3) 1000 UNIT (25 mcg) TAB PO SCH (09:03)
[2020-12-29] MEDS: metFORMIN 500 MG TAB PO SCH ×2 (09:03→16:30)
[2020-12-29] MEDS: hydroCHLOROthiazide 12.5 MG CAP PO SCH ×2 (09:03→21:25)
[2020-12-29] MEDS: MORPHINE 4 MG/1 ML INJ IV PRN ×3 (09:04→22:19)
[2020-12-29] MEDS: POTASSIUM CHLORIDE ER 8 MEQ TAB PO SCH (09:04)
--- NOTE | 2020-12-29 12:55 | Post Anesthesia Evaluation ---
- Post Anesthesia Evaluation Patient Participated: Yes Airway Patent: Yes Stable Respiratory Function: Yes Nausea/Vomiting: No Temp > 96.8F: Yes Pain Manageable: Yes Adequeate Hydration: Yes Anesthesia Complications: No Block Receding Appropriately: Not Applicable Patient on Ventilator: No
[2020-12-29 14:41] LABS: Basophils # (Auto) 0.1 K/mm3 (0.0-0.1); Basophils % (Auto) 0.5 % (0.0-1.8); Hematocrit 37.5 % (30.3-42.9); Hemoglobin 12.2 gm/dl (10.1-14.3); Lymphocytes # (Auto) 2.1 K/mm3 (1.2-5.4); Lymphocytes % (Auto) 14.5 % (13.4-35.0); Mean Corpuscular HGB Conc 33 % (30-34); Mean Corpuscular Volume 95 fl (79-97); Monocytes # (Auto) 1.9 K/mm3 (0.0-0.8); Monocytes % (Auto) 13.4 % (0.0-7.3); Platelet Count 347 K/mm3 (140-440); Red Blood Count 3.95 M/mm3 (3.65-5.03); Red Cell Distribution Width 14.9 % (13.2-15.2)
[2020-12-29 14:43] LABS: Blood Urea Nitrogen 12 mg/dL (7-17); Hemolysis Index 8
[2020-12-29] MEDS: HYDROcodone/ACETAMINOPHEN 10-325MG TAB PO PRN (14:43)
[2020-12-29 14:54] LABS: BUN/Creatinine Ratio 17
--- NOTE | 2020-12-29 14:56 | Progress Note ---
Subjective Date of service: 12/29/20 Interval history: pod1, s/p TKA RIGHT Doing well. pain under control, mild. Calf soft, NT. NVI dressing dry did well with PT. DC plan on EC ASA 81 BID for 6 weeks and TKA instruction sheet Pain meds prn PT home for a week followed by outpatient PT Followup IN 2 WEEKS Objective Vital signs: Vital Signs - 12hr 12/29/20 12/29/20 12/29/20 05:44 08:21 09:04 Temperature 98.1 F 98.3 F Pulse Rate 72 80 Respiratory 18 16 18 Rate Respiratory Rate [Right Knee] Blood Pressure 103/50 123/59 O2 Sat by Pulse 97 97 Oximetry 12/29/20 12/29/20 10:00 14:43 Temperature Pulse Rate Respiratory 20 Rate Respiratory 18 Rate [Right Knee] Blood Pressure O2 Sat by Pulse Oximetry - Labs CBC & BMP: 12/29/20 14:05 12/29/20 14:05 Labs: Abnormal lab results 12/28/20 12/28/20 12/29/20 Range/Units 12:33 22:20 08:37 WBC (4.5-11.0) K/mm3 [place] % (Auto) (0.0-7.3) % [place] # (Auto) (0.0-0.8) K/mm3 Seg Neutrophils % (40.0-70.0) % Seg Neutrophils # (1.8-7.7) K/mm3 POC Glucose 136 H 152 H 133 H (70-105) mg/dL Hemoglobin A1c (4-6) % 12/29/20 12/29/20 12/29/20 Range/Units 11:35 14:05 14:05 WBC 14.2 H (4.5-11.0) K/mm3 [place] % (Auto) 13.4 H (0.0-7.3) % [place] # (Auto) 1.9 H (0.0-0.8) K/mm3 Seg Neutrophils % 71.6 H (40.0-70.0) % Seg Neutrophils # 10.2 H (1.8-7.7) K/mm3 POC Glucose 128 H (70-105) mg/dL Hemoglobin A1c 6.2 H (4-6) %
[2020-12-30] MEDS: MORPHINE 4 MG/1 ML INJ IV PRN ×2 (04:28→11:11)
[2020-12-30 07:36] VITALS: BP 123/53
--- NOTE | 2020-12-30 07:40 | Discharge Summary ---
Providers - Providers Date of Admission: 12/28/20 06:00 Date of discharge: 12/30/20 Attending physician: GLENN MACHADO 12/28/20 11:29 Consult to Case Management [CONS] Routine Services Needed at Discharge: Home Health Services Physical Therapy [employer] Notified:: cm notified Consult to Physician [CONS] Routine Comment: Consulting Provider: [facility] Physician Instructions: Reason For Exam: postop medical management Occupational Therapy Evaluate and Treat [CONS] Routine Comment: Reason For Exam: postop TKA RIGHT SIDE 12/28/20 11:31 Physical Therapy Evaluation and Treat [CONS] Routine Comment: Reason For Exam: postop TKA RIGHT SIDE Primary care physician: CHRIS MOODY Hospitalization Condition: Stable Disposition: DC-01 TO HOME OR SELFCARE Time spent for discharge: 35 min Exam - Constitutional Vitals: Temp Pulse Resp BP Pulse Ox 99.9 F H 87 16 123/53 96 12/30/20 07:33 12/30/20 07:33 12/30/20 07:33 12/30/20 07:33 12/30/20 07:33 Plan Follow up with: CHRIS MOODY MD [Primary Care Provider] - 7 Days
--- NOTE | 2020-12-30 07:45 | Progress Note ---
Hospitalist Physical - Constitutional Vitals: Temp Pulse Resp BP Pulse Ox 99.9 F H 87 16 123/53 96 12/30/20 07:33 12/30/20 07:33 12/30/20 07:33 12/30/20 07:33 12/30/20 07:33 General appearance: Present: no acute distress, well-nourished Results - Labs CBC & Chem 7: 12/29/20 14:05 12/29/20 14:05 Labs: Laboratory Last Values WBC 14.2 K/mm3 (4.5-11.0) H 12/29/20 14:05 RBC 3.95 M/mm3 (3.65-5.03) 12/29/20 14:05 Hgb 12.2 gm/dl (10.1-14.3) 12/29/20 14:05 Hct 37.5 % (30.3-42.9) 12/29/20 14:05 MCV 95 fl (79-97) 12/29/20 14:05 MCH 31 pg (28-32) 12/29/20 14:05 MCHC 33 % (30-34) 12/29/20 14:05 RDW 14.9 % (13.2-15.2) 12/29/20 14:05 Plt Count 347 K/mm3 (140-440) 12/29/20 14:05 Lymph % (Auto) 14.5 % (13.4-35.0) 12/29/20 14:05 [place] % (Auto) 13.4 % (0.0-7.3) H 12/29/20 14:05 Eos % (Auto) 0.0 % (0.0-4.3) 12/29/20 14:05 Baso % (Auto) 0.5 % (0.0-1.8) 12/29/20 14:05 Lymph # (Auto) 2.1 K/mm3 (1.2-5.4) 12/29/20 14:05 [place] # (Auto) 1.9 K/mm3 (0.0-0.8) H 12/29/20 14:05 Eos # (Auto) 0.0 K/mm3 (0.0-0.4) 12/29/20 14:05 Baso # (Auto) 0.1 K/mm3 (0.0-0.1) 12/29/20 14:05 Seg Neutrophils % 71.6 % (40.0-70.0) H 12/29/20 14:05 Seg Neutrophils # 10.2 K/mm3 (1.8-7.7) H 12/29/20 14:05 Sodium 139 mmol/L (137-145) 12/29/20 14:05 Potassium 4.1 mmol/L (3.6-5.0) 12/29/20 14:05 Chloride 102.2 mmol/L (98-107) 12/29/20 14:05 Carbon Dioxide 26 mmol/L (22-30) 12/29/20 14:05 Anion Gap 15 mmol/L 12/29/20 14:05 BUN 12 mg/dL (7-17) 12/29/20 14:05 Creatinine 0.7 mg/dL (0.6-1.2) 12/29/20 14:05 Estimated GFR > 60 ml/min 12/29/20 14:05 BUN/Creatinine Ratio 17 % 12/29/20 14:05 Glucose 97 mg/dL (65-100) 12/29/20 14:05 POC Glucose 98 mg/dL (70-105) 12/30/20 07:34 Hemoglobin A1c 6.2 % (4-6) H 12/29/20 14:05 Calcium 9.0 mg/dL (8.4-10.2) 12/29/20 14:05 Urine Color Straw (Yellow) 12/22/20 09:00 Urine Turbidity Clear (Clear) 12/22/20 09:00 Urine pH 5.0 (5.0-7.0) 12/22/20 09:00 Ur Specific [place] 1.011 (1.003-1.030) 12/22/20 09:00 Urine Protein <15 mg/dl mg/dL (Negative) 12/22/20 09:00 Urine Glucose (UA) Neg mg/dL (Negative) 12/22/20 09:00 Urine Ketones Neg mg/dL (Negative) 12/22/20 09:00 Urine Blood Neg (Negative) 12/22/20 09:00 Urine Nitrite Neg (Negative) 12/22/20 09:00 Urine Bilirubin Neg (Negative) 12/22/20 09:00 Urine Urobilinogen < 2.0 mg/dL (<2.0) 12/22/20 09:00 Ur Leukocyte Esterase Neg (Negative) 12/22/20 09:00 Urine WBC (Auto) < 1.0 /HPF (0.0-6.0) 12/22/20 09:00 Urine RBC (Auto) < 1.0 /HPF (0.0-6.0) 12/22/20 09:00 U Epithel Cells (Auto) < 1.0 /HPF (0-13.0) 12/22/20 09:00 Urine Mucus Few /HPF 12/22/20 09:00 Nasal Screen MRSA (PCR) Negative (Negative) 12/22/20 08:55 Nasal Screen MRSA (PCR) Negative (Negative) 12/22/20 08:55 Coronavirus (PCR) Negative (Negative) 12/22/20 08:55 Blood Type O POSITIVE 12/28/20 06:45 Antibody Screen Negative 12/28/20 06:45 Jenkins/IV: Voiding Method Toilet Active Medications - Current Medications Current Medications: Generic Name Dose Route Start Last Admin Trade Name Freq PRN Reason Stop Dose Admin Hydrocodone Bitart/Acetaminophen 1 each 12/28/20 12:30 12/29/20 14:43 Hydrocodone/Acetaminophen 10-325mg Tab PO 1 each Q4H PRN Administration Pain, Moderate (4-6) Aspirin 81 mg 12/28/20 22:00 12/29/20 22:14 Aspirin Ec 81 Mg Tab PO 81 mg BID DEMETRI Administration Cholecalciferol 1,000 unit 12/29/20 10:00 12/29/20 09:03 Cholecalciferol (Vit D3) 1000 Unit (25 Mcg) Tab PO 1,000 unit QDAY DEMETRI Administration Docusate Sodium 100 mg 12/28/20 22:00 12/29/20 22:14 Docusate Sodium 100 Mg Cap PO 100 mg BID DEMETRI Administration Gabapentin 300 mg 12/28/20 14:00 12/29/20 22:14 Gabapentin 300 Mg Cap PO 300 mg TID DEMETRI Administration Hydrochlorothiazide 12.5 mg 12/28/20 22:00 12/29/20 21:25 Hydrochlorothiazide 12.5 Mg Cap PO Not Given BID DEMETRI Magnesium Hydroxide 30 ml 12/28/20 12:30 Magnesium Hydroxide (Mom) Oral Liqd Udc PO Q4H PRN Constipation Metformin HCl 500 mg 12/28/20 17:00 12/29/20 16:30 Metformin 500 Mg Tab PO 500 mg BIDDIAB DEMETRI Administration Morphine Sulfate 4 mg 12/28/20 12:30 12/30/20 04:28 Morphine 4 Mg/1 Ml Inj IV 4 mg Q4H PRN Administration Pain , Severe (7-10) Ondansetron HCl 4 mg 12/28/20 12:30 12/28/20 17:23 Ondansetron 4 Mg/2 Ml Inj IV 4 mg Q8H PRN Administration Nausea And Vomiting Potassium Chloride 8 meq 12/29/20 10:00 12/29/20 09:04 Potassium Chloride Er 8 Meq Tab PO 8 meq QDAY DEMETRI Administration Promethazine HCl 25 mg 12/28/20 12:30 Promethazine 25 Mg Rect Supp MT Q6H PRN Nausea And Vomiting Sodium Chloride 10 ml 12/28/20 13:00 Sodium Chloride 0.9% 10 Ml Flush Syringe IV PRN PRN flush
--- NOTE | 2020-12-30 07:49 | Progress Note ---
Assessment and Plan Assessment and plan: --COVID-19 test negative 12/22/2020 --Severe advanced osteoarthritis right knee joint ; s/p total knee replacement Current Visit: Yes Status: Acute Ortho evaluated patient underwent surgical procedure 12/28/2020/p right total knee replacement, partial synovectomy of the right knee joint Continue postop care, pain medications PT evaluation recommendations noted Recommend outpatient PT per schedule --Hypertension/moderate controlled Current Visit: Yes Status: Acute Continue current antihypertensives. As needed hydralazine --h/o Vitamin D deficiency Current Visit: Yes Status: Chronic Continue vitamin D supplements --T2DM (type 2 diabetes mellitus) Current Visit: Yes Status: Chronic Accu-Cheks , sliding scale coverage, ADA diet Oral hypoglycemics Metformin, check A1c --Obesity; BMI 36.5 Current Visit: Yes Status: Chronic. Patient needs diet modification exercise as tolerated and weight reduction when he is medically stable --DVT prophylaxis Current Visit: Yes Status: Acute Ortho recommended aspirin enteric-coated 81 mg twice a day for 6 weeks Outpatient physical therapy per schedule Patient is hemodynamically and clinically and medically stable at discharge Follow Ortho post surgery instructions recommendations Follow orthopedic surgeon in 2 weeks Plan of care reviewed with the patient and her nurse History Interval history: I have seen and examined the patient at the bedside Patient's chart and medications reviewed Orthopedic cleared for discharge No new complaints except for mild pain at the site of surgery Vital signs noted Hospitalist Physical - Constitutional Vitals: Temp Pulse Resp BP Pulse Ox 99.9 F H 87 16 123/53 96 12/30/20 07:33 12/30/20 07:33 12/30/20 07:33 12/30/20 07:33 12/30/20 07:33 General appearance: Present: no acute distress, well-nourished, obese - EENT Eyes: Present: PERRL, EOM intact - Neck Neck: Present: supple, normal ROM - Respiratory Respiratory effort: normal Respiratory: bilateral: diminished, negative: rales, rhonchi, wheezing - Cardiovascular Rhythm: regular Heart Sounds: Present: S1 & S2 - Extremities Extremities: no ischemia, No edema, abnormal (Postop changes) - Abdominal General gastrointestinal: soft, non-tender, non-distended, normal bowel sounds - Integumentary Integumentary: Present: clear, warm - Psychiatric Psychiatric: appropriate mood/affect, cooperative - Neurologic Neurologic: CNII-XII intact, moves all extremities Results - Labs CBC & Chem 7: 12/29/20 14:05 12/29/20 14:05 Labs: Laboratory Last Values WBC 14.2 K/mm3 (4.5-11.0) H 12/29/20 14:05 RBC 3.95 M/mm3 (3.65-5.03) 12/29/20 14:05 Hgb 12.2 gm/dl (10.1-14.3) 12/29/20 14:05 Hct 37.5 % (30.3-42.9) 12/29/20 14:05 MCV 95 fl (79-97) 12/29/20 14:05 MCH 31 pg (28-32) 12/29/20 14:05 MCHC 33 % (30-34) 12/29/20 14:05 RDW 14.9 % (13.2-15.2) 12/29/20 14:05 Plt Count 347 K/mm3 (140-440) 12/29/20 14:05 Lymph % (Auto) 14.5 % (13.4-35.0) 12/29/20 14:05 [place] % (Auto) 13.4 % (0.0-7.3) H 12/29/20 14:05 Eos % (Auto) 0.0 % (0.0-4.3) 12/29/20 14:05 Baso % (Auto) 0.5 % (0.0-1.8) 12/29/20 14:05 Lymph # (Auto) 2.1 K/mm3 (1.2-5.4) 12/29/20 14:05 [place] # (Auto) 1.9 K/mm3 (0.0-0.8) H 12/29/20 14:05 Eos # (Auto) 0.0 K/mm3 (0.0-0.4) 12/29/20 14:05 Baso # (Auto) 0.1 K/mm3 (0.0-0.1) 12/29/20 14:05 Seg Neutrophils % 71.6 % (40.0-70.0) H 12/29/20 14:05 Seg Neutrophils # 10.2 K/mm3 (1.8-7.7) H 12/29/20 14:05 Sodium 139 mmol/L (137-145) 12/29/20 14:05 Potassium 4.1 mmol/L (3.6-5.0) 12/29/20 14:05 Chloride 102.2 mmol/L (98-107) 12/29/20 14:05 Carbon Dioxide 26 mmol/L (22-30) 12/29/20 14:05 Anion Gap 15 mmol/L 12/29/20 14:05 BUN 12 mg/dL (7-17) 12/29/20 14:05 Creatinine 0.7 mg/dL (0.6-1.2) 12/29/20 14:05 Estimated GFR > 60 ml/min 12/29/20 14:05 BUN/Creatinine Ratio 17 % 12/29/20 14:05 Glucose 97 mg/dL (65-100) 12/29/20 14:05 POC Glucose 98 mg/dL (70-105) 12/30/20 07:34 Hemoglobin A1c 6.2 % (4-6) H 12/29/20 14:05 Calcium 9.0 mg/dL (8.4-10.2) 12/29/20 14:05 Urine Color Straw (Yellow) 12/22/20 09:00 Urine Turbidity Clear (Clear) 12/22/20 09:00 Urine pH 5.0 (5.0-7.0) 12/22/20 09:00 Ur Specific [place] 1.011 (1.003-1.030) 12/22/20 09:00 Urine Protein <15 mg/dl mg/dL (Negative) 12/22/20 09:00 Urine Glucose (UA) Neg mg/dL (Negative) 12/22/20 09:00 Urine Ketones Neg mg/dL (Negative) 12/22/20 09:00 Urine Blood Neg (Negative) 12/22/20 09:00 Urine Nitrite Neg (Negative) 12/22/20 09:00 Urine Bilirubin Neg (Negative) 12/22/20 09:00 Urine Urobilinogen < 2.0 mg/dL (<2.0) 12/22/20 09:00 Ur Leukocyte Esterase Neg (Negative) 12/22/20 09:00 Urine WBC (Auto) < 1.0 /HPF (0.0-6.0) 12/22/20 09:00 Urine RBC (Auto) < 1.0 /HPF (0.0-6.0) 12/22/20 09:00 U Epithel Cells (Auto) < 1.0 /HPF (0-13.0) 12/22/20 09:00 Urine Mucus Few /HPF 12/22/20 09:00 Nasal Screen MRSA (PCR) Negative (Negative) 12/22/20 08:55 Nasal Screen MRSA (PCR) Negative (Negative) 12/22/20 08:55 Coronavirus (PCR) Negative (Negative) 12/22/20 08:55 Blood Type O POSITIVE 12/28/20 06:45 Antibody Screen Negative 12/28/20 06:45 Jenkins/IV: Voiding Method Toilet Active Medications - Current Medications Current Medications: Generic Name Dose Route Start Last Admin Trade Name Freq PRN Reason Stop Dose Admin Hydrocodone Bitart/Acetaminophen 1 each 12/28/20 12:30 12/29/20 14:43 Hydrocodone/Acetaminophen 10-325mg Tab PO 1 each Q4H PRN Administration Pain, Moderate (4-6) Aspirin 81 mg 12/28/20 22:00 12/29/20 22:14 Aspirin Ec 81 Mg Tab PO 81 mg BID DEMETRI Administration Cholecalciferol 1,000 unit 12/29/20 10:00 12/29/20 09:03 Cholecalciferol (Vit D3) 1000 Unit (25 Mcg) Tab PO 1,000 unit QDAY DEMETRI Administration Docusate Sodium 100 mg 12/28/20 22:00 12/29/20 22:14 Docusate Sodium 100 Mg Cap PO 100 mg BID DEMETRI Administration Gabapentin 300 mg 12/28/20 14:00 12/29/20 22:14 Gabapentin 300 Mg Cap PO 300 mg TID DEMETRI Administration Hydrochlorothiazide 12.5 mg 12/28/20 22:00 12/29/20 21:25 Hydrochlorothiazide 12.5 Mg Cap PO Not Given BID DEMETRI Magnesium Hydroxide 30 ml 12/28/20 12:30 Magnesium Hydroxide (Mom) Oral Liqd Udc PO Q4H PRN Constipation Metformin HCl 500 mg 12/28/20 17:00 12/29/20 16:30 Metformin 500 Mg Tab PO 500 mg BIDDIAB DEMETRI Administration Morphine Sulfate 4 mg 12/28/20 12:30 12/30/20 04:28 Morphine 4 Mg/1 Ml Inj IV 4 mg Q4H PRN Administration Pain , Severe (7-10) Ondansetron HCl 4 mg 12/28/20 12:30 12/28/20 17:23 Ondansetron 4 Mg/2 Ml Inj IV 4 mg Q8H PRN Administration Nausea And Vomiting Potassium Chloride 8 meq 12/29/20 10:00 12/29/20 09:04 Potassium Chloride Er 8 Meq Tab PO 8 meq QDAY DEMETRI Administration Promethazine HCl 25 mg 12/28/20 12:30 Promethazine 25 Mg Rect Supp [place] Q6H PRN Nausea And Vomiting Sodium Chloride 10 ml 12/28/20 13:00 Sodium Chloride 0.9% 10 Ml Flush Syringe IV PRN PRN flush
--- NOTE | 2020-12-30 07:55 | Discharge Summary ---
Providers - Providers Date of Admission: 12/28/20 06:00 Date of discharge: 12/30/20 Attending physician: GLENN MACHADO 12/28/20 11:29 Consult to Case Management [CONS] Routine Services Needed at Discharge: Home Health Services Physical Therapy Neurology Hospitalist DME Equipment Notified:: cm notified Consult to Physician [CONS] Routine Comment: Consulting Provider: ISH DE Physician Instructions: Reason For Exam: postop medical management Occupational Therapy Evaluate and Treat [CONS] Routine Comment: Reason For Exam: postop TKA RIGHT SIDE 12/28/20 11:31 Physical Therapy Evaluation and Treat [CONS] Routine Comment: Reason For Exam: postop TKA RIGHT SIDE Primary care physician: CHRIS MOODY Hospitalization Reason for admission: Advanced osteoarthritis right knee Condition: Stable Pertinent studies: X-ray right knee postop; Right knee arthroplasty with diffuse soft tissue swelling/gas which may be postoperative clinical correlation with history Procedures: 12/28/2020/p right total knee replacement, partial synovectomy of the right knee joint Hospital course: 60-year-old obese female patient with significant history of advanced osteoarthritis of the right knee joint was admitted for elective procedure orthopedics evaluated the patient patient underwent right total knee replacement and partial synovectomy of the right knee joint. Patient had uncomplicated postop stage, received physical therapy occupational therapy today she is comfortable no new complaints vital signs stable , Physical examination prior to discharge did not show any new changes Patient is cleared by orthopedics for discharge and follow-up in his office per schedule as well as outpatient physical therapy Patient was given all the postop instructions by the nurse Patient is hemodynamically and clinically stable at discharge Discharge diagnosis; --COVID-19 test negative 12/22/2020 --Severe advanced osteoarthritis right knee joint ; Ortho evaluated patient underwent surgical procedure 12/28/2020p right total knee replacement, partial synovectomy of the right knee joint Received postop care, pain medications PT evaluated the patient, received therapy Recommend outpatient PT per schedule --Hypertension/moderate controlled Continue current antihypertensives. As needed hydralazine --h/o Vitamin D deficiency Continue vitamin D supplements --T2DM (type 2 diabetes mellitus) Accu-Cheks , sliding scale coverage, ADA diet Oral hypoglycemics Metformin, check A1c 6.2 --Obesity; BMI 36.5 Patient advised diet modification exercise as tolerated and weight reduction when she is medically stable Cleared by Ortho, stable at discharge Disposition: [id number] HOME UNDER [facility] Final Discharge Diagnosis (Prints w/discharge instructions): COVID-19 test - 12/12. Severe advanced osteoarthritis right knee. s/p total knee replacement. Hypertension. Vitamin D deficiency. Type 2 diabetes mellitus. Obesity BMI 36.5 Time spent for discharge: 35 min Core Measure Documentation - Palliative Care Palliative Care/ Comfort Measures: Not Applicable - Core Measures Any of the following diagnoses?: none Exam - Constitutional Vitals: Temp Pulse Resp BP Pulse Ox 99.9 F H 87 16 123/53 96 12/30/20 07:33 12/30/20 07:33 12/30/20 07:33 12/30/20 07:33 12/30/20 07:33 General appearance: Present: no acute distress, well-nourished - EENT Eyes: Present: PERRL, EOM intact - Neck Neck: Present: supple, normal ROM - Respiratory Respiratory effort: normal Respiratory: bilateral: diminished, negative: rales, rhonchi, wheezing - Cardiovascular Rhythm: regular Heart Sounds: Present: S1 & S2 - Extremities Extremities: no ischemia, No edema - Abdominal General gastrointestinal: Present: soft, non-tender, non-distended, normal bowel sounds - Integumentary Integumentary: Present: clear, warm - Musculoskeletal Musculoskeletal: strength equal bilaterally - Psychiatric Psychiatric: appropriate mood/affect, cooperative - Neurologic Neurologic: moves all extremities Plan Activity: advance as tolerated, fall precautions Diet: diabetic Additional Instructions: Follow primary care physician in 1 week. Follow orthopedic surgeon in 2 weeks. Outpatient physical therapy per schedule. Strongly advised to follow total knee replacement postop instructions. If you have worsening symptoms contact MD or go to emergency room. Advised dietary modification, exercise as tolerated and weight reduction when medically stable Follow up with: CHRIS MOODY MD [Primary Care Provider] - 7 Days GLENN MACHADO MD [Staff Physician] - 14 Days Prescriptions: Docusate Sodium [Colace CAP] 100 mg PO BID PRN #20 capsule PRN Reason: Constipation Gabapentin 300 mg PO TID #30 capsule Aspirin EC [Halfprin EC] 81 mg PO BID #90 tablet HYDROcodone/APAP 10-325 [[place] 10-325 mg TAB] 1 each PO Q4H PRN #20 tablet PRN Reason: Pain, Moderate (4-6)
[2020-12-30] MEDS: HYDROcodone/ACETAMINOPHEN 10-325MG TAB PO PRN (08:41)
[2020-12-30] MEDS: DOCUSATE SODIUM 100 MG CAP PO SCH ×2 (08:41→10:48)
[2020-12-30] MEDS: hydroCHLOROthiazide 12.5 MG CAP PO SCH ×2 (08:41→10:48)
[2020-12-30] MEDS: CHOLECALCIFEROL (VIT D3) 1000 UNIT (25 mcg) TAB PO SCH ×2 (08:42→10:48)
[2020-12-30] MEDS: ASPIRIN EC 81 MG TAB PO SCH ×2 (08:42→10:48)
[2020-12-30] MEDS: metFORMIN 500 MG TAB PO SCH (08:42)
[2020-12-30] MEDS: GABAPENTIN 300 MG CAP PO SCH (08:42)
[2020-12-30] MEDS: POTASSIUM CHLORIDE ER 8 MEQ TAB PO SCH ×2 (08:42→10:48)
== END 2020-12-30 15:50 | disposition home health service (06) | DRG 470 ==
LOC: 3A 06:00 → 3B-SURG 11:39
PROVIDERS: ADMIT Orthopaedic Surgery; ATTEND Orthopaedic Surgery
PROC: 0SRC069 Replacement of Right Knee Joint with Oxidized Zirconium on Polyethylene Synthetic Substitute, Cemented, Open Approach (ICD-10-PCS; principal; 2020-12-28)
DX: M17.11 Unilateral primary osteoarthritis, right knee (principal); I10 Essential (primary) hypertension; E11.9 Type 2 diabetes mellitus without complications; E66.9 Obesity, unspecified; Z68.36 Body mass index [BMI] 36.0-36.9, adult; Z20.822 Contact with and (suspected) exposure to COVID-19; Z88.8 Allergy status to other drugs, medicaments and biological substances; E55.9 Vitamin D deficiency, unspecified; Z96.651 Presence of right artificial knee joint; Z79.84 Long term (current) use of oral hypoglycemic drugs
CPT/HCPCS: 36415; 80048; 81001; 82962; 83036; 85025; 86850; 86900; 86901; 87086; 87641; 88304; 88311; G0378; A4217; C1713; C1776; J0690; J1100; J1170; J1885; J2250; J2270; J2405; J2704; J3010; J7050; J7120; U0003

== ENCOUNTER 2021-02-21 10:05 | Outpatient (CLI) | payer BC ==
[2021-02-21 10:46] LABS: Hematocrit 37.9 % (30.3-42.9); Hemoglobin 12.8 gm/dl (10.1-14.3); Mean Corpuscular HGB Conc 34 % (30-34); Mean Corpuscular Volume 93 fl (79-97); Platelet Count 348 K/mm3 (140-440); Red Blood Count 4.06 M/mm3 (3.65-5.03); Red Cell Distribution Width 15.5 % (13.2-15.2)
[2021-02-21 11:09] LABS: Alanine Aminotransferase 25 units/L (7-56); Albumin 3.9 g/dL (3.9-5); Blood Urea Nitrogen 14 mg/dL (7-17); Calcium 9.4 mg/dL (8.4-10.2); Chol/HDL Ratio 5.02 %; HDL Cholesterol 41 mg/dL (40-59); Hemolysis Index 10; LDL Cholesterol,Direct 150 mg/dL (50-130)
[2021-02-21 11:21] LABS: BUN/Creatinine Ratio 28
== END 2021-02-21 10:06 | disposition home or self-care (01) ==
LOC: LAB 10:05
PROVIDERS: ATTEND Internal Medicine
DX: E11.65 Type 2 diabetes mellitus with hyperglycemia (principal); E78.2 Mixed hyperlipidemia; R53.83 Other fatigue
CPT/HCPCS: 36415; 80053; 80061; 83036; 85027